=== PATIENT | female | born 1955 ===

== ENCOUNTER → 2016-08-20 | Outpatient (CLI) | payer MEDICARE, MEDICAID ==
--- NOTE | 2016-08-20 16:53 | Diagnostic Imaging Report ---
Indication: COUGH Technique: Two views of the chest Comparison: none Findings: The heart is enlarged. Lungs and pleural spaces are clear. Impression: Cardiomegaly. No acute process
== END | disposition home or self-care (01) ==
LOC: RAD 10:28
DX: R05 Cough (principal); I51.7 Cardiomegaly
CPT/HCPCS: 71020